=== PATIENT | male | born 1975 | race Caucasian/White ===

== ENCOUNTER → 2017-06-09 12:44 | Outpatient (CLI) | payer OTHER, SELFPAY ==
--- NOTE | 2017-06-09 12:48 | VDLE_ITS ---
Reason For Study: PAIN RIGHT LEFT CFV is compressible, spontaneous, phasic, CFV is compressible, spontaneous, phasic, competent and demonstrates normal competent, and demonstrates normal augmentation. augmentation. FV is compressible, spontaneous, phasic, FV is compressible, spontaneous, phasic, competent and demonstrates normal competent and demonstrates normal augmentation. augmentation. POP V is compressible, spontaneous, phasic, POP V is compressible, spontaneous, phasic, competent and demonstrates normal competent and demonstrates normal augmentation. augmentation. T/P Trunk is compressible. T/P Trunk is compressible. PTV is compressible. PTV is compressible. RT PerV is compressible. LT PerV is compressible. Rt GSV is compressible and competent. Left GSV is compressible and competent. Rt SSV is compressible and competent. Left SSV is compressible and INCOMPETENT Procedure measuring .5 x .6 cm. Exam performed in department. Left Vein of Giacomini is compressible and A preliminary report was called and/or faxed INCOMPETENT measuring .8 x [address] OLIVER. Interpretation Summary Deep veins of the lower extremities are bilaterally patent and compressible segmentally. There is no evidence of deep vein thrombosis on either side. Valvular competence appears intact within the proximal deep venous systems bilaterally. The greater saphenous veins appear bilaterally patent and compressible segmentally. Valvular competence appears to be intact segmentally within the greater saphenous veins bilaterally. The right small saphenous vein is patent and competent. The left small saphenous vein is patent and incompetent. The left vein of Giacomini is incompetent. Ordering Physician: Heraclio Oliver Referring Physician: Heraclio Oliver Performed By: Tina Ren, RDCS, RVT
== END ==
PROVIDERS: Visit Provider Surgery
DX: M79.606 Pain in leg, unspecified (principal); I87.2 Venous insufficiency (chronic) (peripheral); I83.10 Varicose veins of unspecified lower extremity with inflammation
CPT/HCPCS: 93970